=== PATIENT | female | born 1990 | race Caucasian/White ===

== ENCOUNTER → 2018-08-27 | Outpatient (CLI) | payer OTHER ==
[~2018-08-27] MED LIST: AMIT10 PO; CEPH500 PO; ESCI10 PO; FLUO10; MULVITMINE PO
[2018-08-28 10:33] LABS: Candida species (DNA Probe) Negative (NEGATIVE); G. vaginalis (DNA Probe) Positive (NEGATIVE); T. vaginalis (DNA Probe) Negative (NEGATIVE)
== END | disposition home or self-care (01) ==
LOC: LAB 15:14 → LAB SHORT 15:14
PROVIDERS: Obstetrics & Gynecology
DX: N89.8 Other specified noninflammatory disorders of vagina (principal); R30.0 Dysuria
CPT/HCPCS: 87086; 87480; 87510; 87660

== ENCOUNTER 2019-03-01 11:34 | Day surgery (SDC) | payer OTHER ==
[~2019-03-01] VITALS: Ht 157.5 cm; Wt 91.2 kg
[~2019-03-01 11:34] MED LIST changes: +Adipex-P37.5 MG PO; +Mesalamine4 GM/60 ML PR
== END 2019-03-01 14:26 | disposition home or self-care (01) ==
LOC: ORSCSDS 11:34
DX: K50.119 Crohn's disease of large intestine with unspecified complications (principal); K64.4 Residual hemorrhoidal skin tags; R19.7 Diarrhea, unspecified
CPT/HCPCS: 88305; J2704; J7120

== ENCOUNTER → 2019-05-05 | Outpatient (CLI) | payer OTHER | END | disposition home or self-care (01) | LOC: LAB SHORT 18:08 → LAB 18:08 | DX: R30.0 Dysuria (principal) | CPT/HCPCS: 87077; 87086; 87186 ==

== ENCOUNTER 2020-06-26 13:01 | Day surgery (SDC) | payer OTHER ==
[~2020-06-26] VITALS: Ht 162.6 cm; Wt 94.1 kg
[~2020-06-26 13:01] MED LIST changes: +BUDESONIDE EC3 M1 PO; +Balsalazide Di750 MG PO
== END 2020-06-26 14:55 | disposition home or self-care (01) ==
LOC: ORSCSDS 13:01
PROVIDERS: Student in an Organized Health Care Education/Training Program
PROC: 0DBE8ZX Excision of Large Intestine, Via Natural or Artificial Opening Endoscopic, Diagnostic (ICD-10-PCS; principal; 2020-06-26 14:15)
PROC: 0DBN8ZX Excision of Sigmoid Colon, Via Natural or Artificial Opening Endoscopic, Diagnostic (ICD-10-PCS; principal; 2020-06-26 14:15)
DX: R19.7 Diarrhea, unspecified (principal); K92.1 Melena; K50.90 Crohn's disease, unspecified, without complications; D12.5 Benign neoplasm of sigmoid colon; K64.4 Residual hemorrhoidal skin tags; Z79.899 Other long term (current) drug therapy
CPT/HCPCS: 88305; J2704; J7120

== ENCOUNTER 2021-10-18 07:04 | Day surgery (SDC) | payer OTHER ==
[~2021-10-18] VITALS: Ht 157.5 cm; Wt 100.9 kg
[~2021-10-18 07:04] MED LIST changes: +FAMO20
== END 2021-10-18 09:10 | disposition home or self-care (01) ==
LOC: ORSCSDS 07:04
PROVIDERS: Orthopaedic Surgery
PROC: 01N50ZZ Release Median Nerve, Open Approach (ICD-10-PCS; principal; 2021-10-18 08:45)
DX: G56.03 Carpal tunnel syndrome, bilateral upper limbs (principal); K50.90 Crohn's disease, unspecified, without complications; E66.9 Obesity, unspecified; Z68.41 Body mass index [BMI] 40.0-44.9, adult; Z87.891 Personal history of nicotine dependence; Z79.899 Other long term (current) drug therapy
CPT/HCPCS: J2250; J2704; J3010; J7120

== ENCOUNTER 2021-12-04 07:00 | Day surgery (SDC) | payer OTHER ==
[~2021-12-04] VITALS: Ht 157.5 cm; Wt 100.3 kg
--- NOTE | 2021-12-04 08:47 | NUR ---
12/04/21 0847 Em Corral LATE ENTRY ASSUMED CARE OF PATIENT AT 0830 FROM [facility]AR[facility] WALDROP. PATIENT UP IN CHAIR TOLERATING PO FLUIDS. NO C/O PAIN. VSS.
== END 2021-12-04 08:58 | disposition home or self-care (01) ==
LOC: ORSCSDS 07:00
PROVIDERS: Orthopaedic Surgery
PROC: 01N50ZZ Release Median Nerve, Open Approach (ICD-10-PCS; principal; 2021-12-04 08:00)
DX: G56.02 Carpal tunnel syndrome, left upper limb (principal); E66.01 Morbid (severe) obesity due to excess calories; Z68.39 Body mass index [BMI] 39.0-39.9, adult; Z79.899 Other long term (current) drug therapy
CPT/HCPCS: J2250; J2704; J3010; J7120

== ENCOUNTER → 2022-03-30 | Outpatient (CLI) | payer OTHER ==
[2022-03-30 13:38] LABS: BASOPHILS ABSOLUTE AUTO 0.02 K/mm3 (0.00-0.23); BASOPHILS PERCENT AUTO 0 % (0-2); EOSINOPHILS ABSOLUTE AUTO 0.04 K/mm3 (0.00-0.68); EOSINOPHILS PERCENT AUTO 1 % (0-6); Hematocrit 33.8 % (33.0-51.0); Hemoglobin 11.2 g/dL (11.5-16.0); IMMATURE GRAN ABSOLUTE AUTO 0.02 K/mm3 (0.00-0.10); IMMATURE GRAN PERCENT AUTO 0 % (0-1); LYMPHOCYTES ABSOLUTE AUTO 0.52 K/mm3 (0.84-5.20); LYMPHOCYTES PERCENT AUTO 11 % (21-46); MONOCYTES PERCENT AUTO 6 % (4-13); Mean Corpuscular HGB Conc 33.1 g/dL (31.5-36.5); Mean Corpuscular Volume 85 fL (80-100); Mean Platelet Volume 10.1 fL (9.1-12.4); NEUTROPHILS PERCENT AUTO 82 % (41-73); Platelet Count 239 K/mm3 (150-400); RDW Coefficient Variation 13.8 % (11.7-14.2); RDW Standard Deviation 42.5 fL (35.1-46.3)
[2022-03-30 13:47] LABS: Albumin, Blood 3.4 g/dL (3.4-5.0); Albumin/Globulin Ratio 0.9 (0.8-1.8); Bilirubin, Total 0.9 mg/dL (0.1-1.0); Bun/Creatinine Ratio 10.4 (12.0-20.0); Calcium, Blood 8.6 mg/dL (8.5-10.1); Creatinine, Blood 0.77 mg/dL (0.40-1.00); Potassium, Blood 3.8 mmol/L (3.5-5.5); Total Protein, Blood 7.4 g/dL (6.4-8.2)
== END | disposition home or self-care (01) ==
LOC: LAB 13:32 → LAB SHORT 13:32
PROVIDERS: General Practice
DX: K62.5 Hemorrhage of anus and rectum (principal)
CPT/HCPCS: 80053; 85025